=== PATIENT | female | born 1945 | race Caucasian/White ===

== ENCOUNTER 2021-04-05 21:53 | Inpatient (IN) | payer MEDICARE ==
[~2021-04-05] VITALS: Ht 167.6 cm; Wt 78.0 kg
[2021-04-05 23:16] LABS: HEMOGLOBIN 15.2 gm/dl (12.3-15.3); RED BLOOD COUNT 5.35 M/UL (4.00-5.10); WHITE BLOOD COUNT 16.1 K/UL (4.5-11.0)
[2021-04-06] LABS: BUN/CREATININE RATIO 26 (0-10)
[2021-04-06 06:15] LABS: BUN/CREATININE RATIO 29 (0-10)
[2021-04-06] MEDS ORDERED: CARVEDILOL25 MG PO (11:27)
[2021-04-06] MEDS ORDERED: FOLIC ACID1 MG PO (11:28)
[2021-04-06] MEDS ORDERED: TRULICITY1.5 MG/0.5 SQ (11:29)
[2021-04-06] MEDS ORDERED: LEVOTHYROXINE150 MCG PO (11:30)
[2021-04-06] MEDS ORDERED: REPAGLINIDE1 MG PO (11:30)
[2021-04-06] MEDS ORDERED: TOUJEO MAX300 UNIT/1 SQ (11:31)
[2021-04-06] MEDS ORDERED: PRIMIDONE250 MG PO (11:31)
[2021-04-06] MEDS ORDERED: ENTRESTO 97 MG1 EACH PO (11:32)
[2021-04-06] MEDS ORDERED: MONTELUKAST SOD10 MG PO (11:32)
[2021-04-06] MEDS ORDERED: DRISDOL1250 MCG PO (11:33)
[2021-04-06] MEDS ORDERED: DULOXETINE HCL60 MG PO (11:33)
[2021-04-06] MEDS ORDERED: NASACORT16.9 ML (11:34)
[2021-04-06] MEDS ORDERED: POTASSIUM CHLO10 ME1 PO (11:35)
[2021-04-06] MEDS ORDERED: PROTONIX 40 MG40 M1 PO (11:36)
[2021-04-06] MEDS ORDERED: CRESTOR10 MG PO (11:36)
[2021-04-06] MEDS ORDERED: PULMICORT FLEX90 MCG INH (11:43)
[2021-04-06] MEDS ORDERED: ASPIRIN EC81 MG PO (11:44)
[2021-04-06] MEDS ORDERED: TYLENOL EXTRA500 MG PO (11:45)
[2021-04-07 03:00] LABS: RED BLOOD COUNT 4.56 M/UL (4.00-5.10); WHITE BLOOD COUNT 9.9 K/UL (4.5-11.0)
[2021-04-07 03:01] LABS: HEMOGLOBIN 13.2 gm/dl (12.3-15.3)
[2021-04-07 03:27] LABS: BUN/CREATININE RATIO 33 (0-10)
[2021-04-08 05:22] LABS: BUN/CREATININE RATIO 40 (0-10)
[2021-04-08 05:55] LABS: HEMOGLOBIN 13.3 gm/dl (12.3-15.3); RED BLOOD COUNT 4.58 M/UL (4.00-5.10)
[2021-04-09 05:54] LABS: HEMOGLOBIN 11.7 gm/dl (12.3-15.3)
[2021-04-09 05:56] LABS: RED BLOOD COUNT 4.07 M/UL (4.00-5.10)
[2021-04-09 07:49] LABS: BUN/CREATININE RATIO 53 (0-10)
[2021-04-10 07:17] LABS: HEMOGLOBIN 11.3 gm/dl (12.3-15.3); RED BLOOD COUNT 4.1 M/UL (4.00-5.10); WHITE BLOOD COUNT 8.8 K/UL (4.5-11.0)
[2021-04-10 07:41] LABS: BUN/CREATININE RATIO 59 (0-10)
[2021-04-11 05:54] LABS: HEMOGLOBIN 11.5 gm/dl (12.3-15.3); WHITE BLOOD COUNT 8.3 K/UL (4.5-11.0)
[2021-04-11 06:12] LABS: BUN/CREATININE RATIO 49 (0-10)
[2021-04-12 06:29] LABS: HEMOGLOBIN 11.4 gm/dl (12.3-15.3); RED BLOOD COUNT 3.94 M/UL (4.00-5.10); WHITE BLOOD COUNT 8.3 K/UL (4.5-11.0)
[2021-04-12 07:03] LABS: BUN/CREATININE RATIO 63 (0-10)
[2021-04-13 06:48] LABS: HEMOGLOBIN 11.2 gm/dl (12.3-15.3); RED BLOOD COUNT 4.02 M/UL (4.00-5.10)
[2021-04-13 06:52] LABS: WHITE BLOOD COUNT 12.9 K/UL (4.5-11.0)
[2021-04-13 07:20] LABS: BUN/CREATININE RATIO 45 (0-10)
[2021-04-17] MEDS ORDERED: ELIQUIS 2.5 MG2.5 MG PO (18:18)
[2021-04-17] MEDS ORDERED: HYDROCODON-ACE1 EAC2 PO (18:18)
[2021-04-17] MEDS ORDERED: IPRATROPIU0.2 MG/1 M NEB (18:30)
[2021-04-19 06:26] LABS: HEMOGLOBIN 11.2 gm/dl (12.3-15.3); RED BLOOD COUNT 3.96 M/UL (4.00-5.10); WHITE BLOOD COUNT 6.4 K/UL (4.5-11.0)
[2021-04-19 07:02] LABS: BUN/CREATININE RATIO 29 (0-10)
== END 2021-04-20 16:36 | DRG 481 ==
LOC: ER1 21:53 → M/S 23:18 → CDU 23:18 → M/S 04-06 14:54
PROVIDERS: Emergency Medicine; Internal Medicine; Internal Medicine Infectious Disease; Orthopaedic Surgery; Physician Assistant; ADMIT Internal Medicine
PROC: B24BZZ4 Ultrasonography of Heart with Aorta, Transesophageal (ICD-10-PCS; 2021-04-06)
PROC: 0QS704Z Reposition Left Upper Femur with Internal Fixation Device, Open Approach (ICD-10-PCS; principal; 2021-04-07 08:00)
PROC: 0PSDXZZ Reposition Left Humeral Head, External Approach (ICD-10-PCS; principal; 2021-04-07 08:00)
DX: S72.142A Displaced intertrochanteric fracture of left femur, initial encounter for closed fracture (principal); S42.202A Unspecified fracture of upper end of left humerus, initial encounter for closed fracture; I42.9 Cardiomyopathy, unspecified; I50.22 Chronic systolic (congestive) heart failure; C34.90 Malignant neoplasm of unspecified part of unspecified bronchus or lung; I13.0 Hypertensive heart and chronic kidney disease with heart failure and stage 1 through stage 4 chronic kidney disease, or unspecified chronic kidney disease; E87.1 Hypo-osmolality and hyponatremia; Z20.822 Contact with and (suspected) exposure to COVID-19; E78.5 Hyperlipidemia, unspecified; M79.7 Fibromyalgia; I16.0 Hypertensive urgency; E11.9 Type 2 diabetes mellitus without complications; K21.9 Gastro-esophageal reflux disease without esophagitis; J30.9 Allergic rhinitis, unspecified; N18.30 Chronic kidney disease, stage 3 unspecified; E03.9 Hypothyroidism, unspecified; W18.30XA Fall on same level, unspecified, initial encounter; G25.0 Essential tremor; J44.9 Chronic obstructive pulmonary disease, unspecified; I48.0 Paroxysmal atrial fibrillation; Z79.01 Long term (current) use of anticoagulants; Z79.82 Long term (current) use of aspirin; Z98.51 Tubal ligation status; Z87.81 Personal history of (healed) traumatic fracture; Z88.2 Allergy status to sulfonamides; Z88.8 Allergy status to other drugs, medicaments and biological substances; Z91.040 Latex allergy status; Z82.49 Family history of ischemic heart disease and other diseases of the circulatory system; Z88.7 Allergy status to serum and vaccine
CPT/HCPCS: ECHO; 36415; 71045; 73030; 73501; 73502; 73522; 76000; 80048; 80053; 82550; 82553; 82962; 83735; 83880; 84484; 85025; 85027; 93005; 93306; 94640; 94664; 94760; 97110; 97110-GP-CQ; 97161; 97166; 97530; 97530-GP-CQ; 97535; 99285; C1713; J0171; J0690; J1100; J1170; J2270; J2405; J2704; J2795; J3010; J7120; U0002